=== PATIENT | female | born 1985 | race Caucasian/White ===

== ENCOUNTER → 2019-07-23 10:00 | Outpatient (CLI) | payer OTHER, SELFPAY ==
[2018-05-29 08:42] VITALS: BMI 23.1
[2019-07-23 10:51] LABS: Absolute Lymphocyte Count 1.94 X10^3/uL (0.83-4.51); Absolute Neutrophil Count 4.6 X10^3/uL (2.0-7.7); Basophil# 0.04 X10^3/uL; Basophil% 0.6 % (0-1); Eosinophil# 0.05 X10^3/uL; Eosinophils% 0.7 % (0-5); Hematocrit 39.8 % (37-47); Hemoglobin 12.6 g/dL (12.0-15.0); Lymphocyte # 1.94 X10^3/ul (4.0); Lymphocyte % 27.4 % (19-41); Mean Corp Hgb Conc 31.7 g/dL (32-36); Mean Corpuscular Hgb 28.1 pg (27.0-32.0); Mean Corpuscular Volume 88.6 fL (81-99); Mean Platelet Vol. 11.3 fl (6.2-12.0); Monocyte# 0.42 X10^3/uL; Monocyte% 5.9 % (0-10); NRBC Flagged by Analyzer 0 % (0-5); Platelet Count 277 K/mm3 (150-450); RBC Distribution Width CV 12.1 % (11.6-14.6); RBC Distribution Width SD 39.4 fl (35.1-43.9); Red Blood Count 4.49 M/mm3 (4.2-5.4); White Blood Count 7.1 K/mm3 (4.4-11.0)
[2019-07-23 10:59] LABS: Erythrocyte Sedimentation Rate 9 mm/hr (0-20)
[2019-07-23 11:17] LABS: T4 Total, Thyroxin 11.5 ug/dL (4.8-13.9); Thyroid Stim Hormone (TSH) 1.03 uIU/mL (0.358-3.74)
[2019-07-27 13:00] LABS: Immunoglobulin E 42 IU/mL (6-495)
== END ==
PROVIDERS: Family Provider Family Medicine; PCP Family Medicine; Referring Provider Otolaryngology Otolaryngology/Facial Plastic Surgery; Visit Provider Otolaryngology Otolaryngology/Facial Plastic Surgery
DX: R09.81 Nasal congestion (principal); R53.83 Other fatigue; R22.0 Localized swelling, mass and lump, head
CPT/HCPCS: 36415; 82785; 84436; 84443; 85025; 85652

== ENCOUNTER 2019-10-23 09:17 | Emergency (ER) | payer OTHER, SELFPAY ==
[2019-09-03 10:17] VITALS: BMI 25.4
[2019-10-23 09:19] VITALS: BP 118/84; PULSE 125; RESP 18; TEMP 36.6; O2SAT 99; BMI 24.2
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
[2019-10-23] MEDS: Ondansetron ODT 4 MG Tablet PO (09:49)
[2019-10-23] MEDS: Acetaminophen 325 MG Tablet 650 MG PO (09:49)
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
--- NOTE | 2019-10-23 09:53 | DCINST.ED_ITS ---
ED Disposition - Plan for ED Patient: Instructions: CONCUSSION, No Wake Up, HEAD INJURY, No Wake-Up (Adult) Prescriptions: Ondansetron [Zofran Odt] 4 mg PO Q8H PRN PRN #10 tab PRN Reason: Nausea Transmission Status: Pending to [id number] Referrals: Mumtza Billingsley MD [Primary Care Provider] - 3-5 Days
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
== END 2019-10-23 10:16 | disposition home or self-care (01) ==
LOC: ED 10:05
PROVIDERS: Emergency Provider Emergency Medicine; PCP Family Medicine
DX: S06.0X0A Concussion without loss of consciousness, initial encounter (principal); W06.XXXA Fall from bed, initial encounter; S20.229A Contusion of unspecified back wall of thorax, initial encounter; Z79.899 Other long term (current) drug therapy; F32.9 Major depressive disorder, single episode, unspecified; M79.7 Fibromyalgia
CPT/HCPCS: 70450; 99283

== ENCOUNTER → 2021-05-17 08:30 | Outpatient (CLI) | payer OTHER, SELFPAY | PROVIDERS: PCP Family Medicine; Referring Provider Physician Assistant Surgical; Visit Provider Physician Assistant Surgical | DX: J02.9 Acute pharyngitis, unspecified (principal) | CPT/HCPCS: 87635; U0005; U0003 ==

== ENCOUNTER 2021-06-10 16:05 | Emergency (ER) | payer OTHER, SELFPAY ==
[2021-06-10 16:06] VITALS: BP 142/86; PULSE 124; PULSE 125; RESP 18; TEMP 36.8; O2SAT 97; BMI 26.9
--- NOTE | 2021-06-10 17:44 | EKG12_ITS ---
Test Reason : SOB Blood Pressure : / mmHG Vent. Rate : 097 BPM Atrial Rate : 097 BPM P-R Int : 162 ms QRS Dur : 074 ms QT Int : 344 ms P-R-T Axes : 074 064 050 degrees QTc Int : 436 ms Normal sinus rhythm Normal ECG Confirmed by BRUCE SALAZAR, SRIDHAR ([id number]), film editor supervisor MATHEW MAK ([id number]) on 06/14/2021 8:42:45 AM Referred By: KRISTEL Confirmed By:SRIDHAR BARRERA MD
--- NOTE | 2021-06-10 17:48 | EDS_ITS ---
HPI History of Present Illness Chief Complaint: Other, Pain/Inj Narrative Narrative: 35-year-old female presenting with bilateral breast pain. She states that on the lateral aspect of each breast. She is currently day 10 of Covid 19 symptoms. She still has a mild cough. She complains of pain with deep inspiration in the center of her chest but also radiates to the bilateral breasts. She states that she has been on prednisone twice for her breast pain. This does seem to help the pain. However it comes back when she finishes the prednisone. She does not note any. She is noted no color changes. She has no pain in the axilla. Patient has tenderness in the lateral aspect of the bilateral breast. Patient is on control and states there is very low possibility of as both she and her significant other stated they were tested and were told that they have low probability of . Patient states that she has never had a fever. She did have body aches and chills. Patient does admit to some shortness of breath with exertion. She has not had any leg swelling or pain. [facility] Medical History Depression with anxiety Home Medications L norgest/E estradiol-E estrad 0.10 mg-20 mcg (84)/10 mcg(7) tabs,3mos 1 tab PO QDAY #91 tab 09/07/20 [Rx Last Taken Unknown] citalopram 40 mg tablet 40 mg PO DAILY #90 tab 09/07/20 [Rx Last Taken Unknown] azithromycin 250 mg tablet See Rx Instructions PO .COMPLEX #6 tab 05/17/21 [Rx Last Taken Unknown] prednisone 10 mg PO UD #33 tab 06/10/21 [Rx Last Taken Unknown] Allergy/AdvReac Type Severity Reaction Status Date / Time hydrocodone [From Vicodin] Allergy Mild nausea, Verified 05/17/21 17:10 vomiting Family History Grandmother Breast cancer Grandfather Prostate cancer Mother Depression Surgical History surgical removal of mole Iola teeth extracted Social History Smoking Status: Never smoker alcohol intake: current alcohol intake frequency: holidays/special occasions only substance use type: does not use caffeine: No what type of physical activity do you participate in: none seatbelt use: always do you feel safe at home: Yes additional 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 Respiratory/Chest Respiratory/Chest: Reports cough, dyspnea and dyspnea on exertion; Denies sputum Gastrointestinal Gastrointestinal: Denies abdominal pain, nausea or vomiting Genitourinary Genitourinary ED: Denies dysuria or hematuria Musculoskeletal Musculoskeletal: Denies arthralgias, myalgias or neck pain Integumentary Denies Abrasions or rash Neurologic Neurologic: Denies headache(s) or paresthesias EXAM Physical Exam Const Vital Signs: 06/10/21 16:06 06/10/21 18:12 06/10/21 18:13 Temperature 98.2 F Temperature Source Temporal Pulse Rate 124 H 98 Respiratory Rate 18 15 Respiratory Effort Normal Non-Labored Blood Pressure 142/86 H Blood Pressure Mean 104 Pulse Ox 97 98 Oxygen Delivery Method Room Air Room Air 06/10/21 19:35 Temperature Temperature Source Pulse Rate Respiratory Rate Respiratory Effort Blood Pressure Blood Pressure Mean Pulse Ox 97 Oxygen Delivery Method Positive well developed General Appearance ED: well developed and NAD; Negative for pallor HEENT normocephalic and atraumatic Eyes PERRL and EOMs intact bilaterally Chest Wall palpation of chest normal Breast/Axilla Inspection: abnormal inspection of the breast and other Other Details: Tenderness at the lateral aspect of each breast without crepitance, bruising, erythema. ; Negative for abnormal inspection of the axilla Nipple/Areola: No nipple discharge Resp normal respiratory effort Effort and Inspection: respiratory distress Cardio regular rhythm Rate: tachycardic GI normal to inspection, nondistended, normoactive bowel sounds Extremity normal to inspection General Extremety ED: Negative for edema or tenderness General Extremity: Negative for edema Neuro oriented x3, CN's II-XII intact bilaterally and no sensory deficits noted Sensorium / Orientation: awake and alert Motor Exam: strength 5/5 throughout and strength abnormal Psych mental status grossly normal Skin General Skin Exam: Negative for jaundice or pallor Heart Score History: Slightly/Non-Suspicious ECG: Normal Age: </= 45 years Risk Factors: No Risk Factors Troponin: </= Normal Limit Score: 0 MDM MDM MDM Narrative Medical decision making narrative: Patient presenting with bilateral breast pain which is on the lateral aspect of bilateral breasts. She has had Covid and is nearly out of quarantine. She also complains of pain with deep inspiration. She is been on prednisone twice for this. From a cardiac standpoint she has no risk factors for ACS. EKG shows a normal sinus rhythm with a ventricular rate of 97 bpm without sign of ischemic changes. Patient has COVID-19 actively and is in the inflammatory phase he is also on oral control and given her chest pain I did obtain a CTA of the chest which shows no acute PE or dissection but does show an 11 mm nonspecific nodule which could also be a focal point of pneumonitis. Patient's troponin is negative. Her lab work shows a slight leukocytosis at 12.8 however she has been on steroids. Her renal function electrolytes are normal. LFTs are normal. Serum is negative. Patient was given morphine and Zofran and states that her pain is not well controlled. The pain has been here for most of the time she is had COVID-19. She reports that steroids do help so I will give her another steroid taper. This should cover her until she is out of quarantine. Given the patient's breast pain I recommended that she get a mammogram on an outpatient basis when she is out of quarantine and although I did find some breast tenderness I did not feel any masses. She has no obvious skin changes. She does not report any drainage. She has no axillary lymph nodes. Patient acknowledged understanding of instructions. She can return precautions. Impression: 1. Breast pain 2. Atypical chest pain. 3. History of COVID-19 4. Pulmonary nodule Lab Data Labs: Laboratory Results - last 24 hr 06/10/21 06/10/21 06/10/21 18:02 18:02 18:02 WBC 12.8 H RBC 4.45 Hgb 12.2 Hct 37.6 MCV 84.5 MCH 27.4 MCHC 32.4 RDW Std Deviation 36.9 RDW Coeff of Marlene 12.1 Plt Count 374 MPV 10.1 Immature Gran % (Auto) 0.700 Neut % (Auto) 73.2 H Lymph % (Auto) 19.3 Bent % (Auto) 6.3 Eos % (Auto) 0.2 Baso % (Auto) 0.3 Absolute Neuts (auto) 9.4 H Absolute Lymphs (auto) 2.46 Nucleated RBC % 0 Sodium 138 Potassium 4.1 Chloride 104 Carbon Dioxide 29.0 Anion Gap 5 BUN 15 Creatinine 0.66 Estim Creat Clear Calc 111.37 Est GFR (MDRD) Af Amer 130 Est GFR (MDRD) Non-Af 107 BUN/Creatinine Ratio 22.7 H Glucose 95 Calcium 9.0 Total Bilirubin 0.30 AST 24 ALT 37 Alkaline Phosphatase 61 Troponin I High Sens 8 Total Protein 7.7 Albumin 3.4 Globulin 4.3 H Albumin/Globulin Ratio 0.8 L Serum , Qual NEGATIVE Radiography Diagnostic Testing: Clinical Impression(s) from Imaging Studies Chest CTA 06/10/21 18:30 IMPRESSION: 1. No pulmonary embolism 2. Solitary 11 mm nodule, nonspecific, possibly focal pneumonitis. Consider viral logic testing for Covid. Otherwise follow-up in 6 months is advised. Electronically Signed: Corie Mendez MD at 18:58 EDT Tel , Service support , Discharge Plan Triage Chief Complaint: Other, Pain/Inj ED Provider: Nikunj Weber Dx/Rx/DC Orders Instructions: Coronavirus Disease 2019 (COVID-19): Caring for Yourself or Others, ED Pulmonary Nodule, Solitary Prescriptions: New prednisone 10 mg tablet 10 mg PO UD Qty: 33 RF: 0 No Action citalopram 40 mg tablet 40 mg PO DAILY Qty: 90 RF: 4 L norgest/e.estradiol-e.estrad [LoSeasonique] 0.10 mg-20 mcg (84)/10 mcg (7) tablets,dose pack,3 month 1 tab PO QDAY Qty: 91 RF: 4 azithromycin 250 mg tablet See Rx Instructions PO .COMPLEX Qty: 6 RF: 0 Primary Care Provider: Mumtaz Billingsley Referrals: Mumtaz Billingsley MD [Primary Care Provider] - Activity Restrictions/Additional Instructions: You were seen today for atypical chest pain and breast pain. I did not appreciate any masses but did appreciate tenderness. The CT of your chest was negative for blood clots however you did have a single pulmonary nodule versus focal area of inflammation (pneumonitis). You will need follow-up with your primary care physician to ensure resolution of the pulmonary nodule/pneumonitis. I recommend you also get scheduled for mammogram due to the pain in your breasts. Disposition Disposition: Home, Self Care Discharge Date/Time: 06/10/21 19:36
[2021-06-10 18:12] VITALS: PULSE 98; RESP 15; O2SAT 98
[2021-06-10 18:13] LABS: Absolute Lymphocyte Count 2.46 X10^3/uL (0.83-4.51); Absolute Neutrophil Count 9.4 X10^3/uL (2.0-7.7); Basophil# 0.04 X10^3/uL; Basophil% 0.3 % (0-1); Eosinophil# 0.03 X10^3/uL; Eosinophils% 0.2 % (0-5); Hematocrit 37.6 % (37-47); Hemoglobin 12.2 g/dL (12.0-15.0); Lymphocyte # 2.46 X10^3/ul (0.83-4.51); Lymphocyte % 19.3 % (19-41); Mean Corp Hgb Conc 32.4 g/dL (32-36); Mean Corpuscular Hgb 27.4 pg (27.0-32.0); Mean Corpuscular Volume 84.5 fL (81-99); Mean Platelet Vol. 10.1 fl (6.2-12.0); Monocyte% 6.3 % (0-10); NRBC Flagged by Analyzer 0 % (0-5); Neutrophil # 9.35 X10^3/uL (2.7-7.7); Neutrophil % 73.2 % (47-70); Platelet Count 374 K/mm3 (150-450); RBC Distribution Width CV 12.1 % (11.6-14.6); RBC Distribution Width SD 36.9 fl (35.1-43.9); Red Blood Count 4.45 M/mm3 (4.2-5.4); White Blood Count 12.8 K/mm3 (4.4-11.0)
[2021-06-10 18:15] LABS: Internal QC Validated? YES +Cl - CLEAR BKGD; Pregnancy, Serum, hCG Quali. NEGATIVE Negative
[2021-06-10] MEDS: Morphine 4 MG/ML Syringe IV (18:15)
[2021-06-10] MEDS: Ondansetron 4 MG/2 ML Vial IV (18:15)
[2021-06-10 18:27] LABS: ALB/GLOB Ratio 0.8 RATIO (0.9-2.4); AST(SGOT) 24 U/L (15-37); Alanine Aminotransfer ALT/SGPT 37 U/L (13-56); Albumin, Serum 3.4 g/dL (3.2-5.0); Alkaline Phosphatase 61 U/L (45-117); Anion Gap 5 (5-15); BUN 15 mg/dL (7-18); BUN/Creat Ratio 22.7 RATIO (10-20); Chloride 104 mmol/L (98-107); Creatinine, Serum 0.66 mg/dL (0.55-1.02); EST Glomerular Filtration Rate 107 mL/min (>60); Est Glom Filt Rate - Afr Amer 130 mL/min (>60); Estimated Creatinine Clearance 111.37 ml/min; Globulin 4.3 g/dL (2.2-4.2); Glucose 95 mg/dL (74-106); Potassium 4.1 mmol/L (3.5-5.1); Protein, Total 7.7 g/dL (6.4-8.2); Sodium Level 138 mmol/L (136-145); Troponin-I HS 8 pg/mL (3.0-54.0)
--- NOTE | 2021-06-10 18:30 | CT_ITS ---
STUDY: CTA CHEST REASON FOR EXAM: Female, 35 years old. Chest pain RADIATION DOSAGE (If Supplied By Facility): CTDIvol = ( 9.47 ) mGy, DLP = ( 319.60 ) mGycm TECHNIQUE: The examination was performed with the intravenous administration of IV 100mL Isovue-370. Post-processing of the angiographic images was performed, with multiplanar reformation and 3D reconstruction. Individualized dose optimization techniques were used for this CT. COMPARISON: None. FINDINGS: There is no acute or chronic pulmonary embolism. Aorta is of normal caliber. There is a solitary consolidative 11 mm nodule in the left lower lobe superior segment. There is minor right middle lobe atelectasis. There is no pneumothorax, pulmonary edema or pleural effusions. Mediastinal contents are normal. Osseous structures are intact. Abdominal structures are unremarkable. CT/CTA Chest W/WO Contrast IMPRESSION: 1. No pulmonary embolism 2. Solitary 11 mm nodule, nonspecific, possibly focal pneumonitis. Consider viral logic testing for Covid. Otherwise follow-up in 6 months is advised. Electronically Signed: Corie Mendez MD at 18:58 EDT Tel , Service support ,
[2021-06-10 19:35] VITALS: O2SAT 97
== END 2021-06-10 19:36 | disposition home or self-care (01) ==
PROVIDERS: Emergency Provider Student in an Organized Health Care Education/Training Program; PCP Family Medicine
DX: N64.4 Mastodynia (principal); U07.1 COVID-19; R91.1 Solitary pulmonary nodule
CPT/HCPCS: 71275; 80053; 84484; 84703; 85025; 93005; 96374; 96375; 99284; Q9967; A4216; J2405

== ENCOUNTER → 2021-06-20 08:53 | Outpatient (CLI) | payer OTHER, SELFPAY ==
--- NOTE | 2021-06-20 08:58 | BI_ITS ---
MAMMOGRAPHY - BILATERAL DIAGNOSTIC REASON FOR EXAM: Female, 35 years old. Occasional bilateral breast pain worse on the lateral aspect of the right breast. PERTINENT HISTORY: Grandmother with breast cancer. TECHNIQUE: Digital bilateral breast christian (3D mammographic acquisition) in the CC and MLO projections. 2-D mediolateral oblique (MLO) and craniocaudad (CC) views of both breasts were obtained. CAD: Full Field Digital Mammography with Computer Added Detection was performed. COMPARISON: None. Baseline examination. FINDINGS: Breast Composition: The breasts are extremely dense, which lowers the sensitivity of mammography. There are no dominant masses or suspicious calcifications. No other significant abnormalities are identified. BI/DIAG MAMM W/CAD, BILAT IMPRESSION: Negative diagnostic mammogram. With the patient''s history of the breast pain, targeted ultrasound follow-up is recommended. ASSESSMENT CATEGORY: BIRADS Category 0: Incomplete. Need additional imaging evaluation. A letter regarding these results will be sent to the patient by the facility within 30 days. Approximately 10% of breast cancers are not detected by mammography. A normal mammogram should not delay biopsy of a clinically suspicious abnormality. Electronically Signed: Hernandez Larson MD at 10:33 EDT , Service support ,
--- NOTE | 2021-06-20 08:58 | US_ITS ---
STUDY: ULTRASOUND BREAST - RIGHT (accession [id number]), LEFT (accession [id number]) REASON FOR EXAM: Female, 35 years old. Pain in the right breast. TECHNIQUE: Axial and longitudinal images of the RIGHT (accession [id number]), LEFT (accession [id number]) breast were performed with a high resolution ultrasound transducer. # OF IMAGES: 64 COMPARISON: Comparison is made with prior mammogram done earlier in the day. FINDINGS: LeftBreast: The lateral aspect of the left breast was examined by ultrasound. There is a 9 mm x 6 mm x 4 mm cyst at the 2 o''clock position of the breast at 3 cm from nipple. IMPRESSION: 9 mm x 6 mm x 4 mm cyst is seen at the 2 o''clock position of the left breast at 3 cm from the nipple. ASSESSMENT CATEGORY: BIRADS Category 2: Benign. A letter regarding these results will be sent to the patient by the facility within 30 days. Electronically Signed: Hernandez Larson MD at 10:35 EDT , Service support , STUDY: ULTRASOUND BREAST - RIGHT (accession [id number]), LEFT (accession [id number]) REASON FOR EXAM: Female, 35 years old. Pain in the right breast. TECHNIQUE: Axial and longitudinal images of the RIGHT (accession [id number]), LEFT (accession [id number]) breast were performed with a high resolution ultrasound transducer. # OF IMAGES: 64 COMPARISON: Comparison is made with prior mammogram done earlier in the day. FINDINGS: LeftBreast: The lateral aspect of the left breast was examined by ultrasound. There is a 9 mm x 6 mm x 4 mm cyst at the 2 o''clock position of the breast at 3 cm from nipple. US/Breast Limited Unilateral
== END ==
PROVIDERS: PCP Family Medicine; Referring Provider Nurse Practitioner Women's Health; Visit Provider Nurse Practitioner Women's Health
DX: N64.4 Mastodynia (principal)
CPT/HCPCS: 76642; 77062; 77066; G0279

== ENCOUNTER 2021-09-15 16:03 | Outpatient (CLI) | payer OTHER, SELFPAY ==
[2021-09-20 13:34] LABS: HPV APTIMA, High Risk Negative (Negative)
== END 2021-09-15 23:59 | disposition short-term general hospital (02) ==
LOC: LABSPEC 16:04
PROVIDERS: PCP Family Medicine; Visit Provider Obstetrics & Gynecology
DX: Z12.4 Encounter for screening for malignant neoplasm of cervix (principal)
CPT/HCPCS: 87624; 88175; G0145

== ENCOUNTER → 2024-10-15 | Outpatient (CLI) | payer OTHER, SELFPAY ==
[2024-10-15 12:23] LABS: Absolute Lymphocyte Count 2.02 X10^3/uL (0.83-4.51); Absolute Neutrophil Count 4.3 X10^3/uL (2.0-7.7); Basophil# 0.03 X10^3/uL; Basophil% 0.4 % (0-1); Eosinophil# 0.06 X10^3/uL; Eosinophils% 0.9 % (0-5); Hematocrit 36.8 % (37-47); Hemoglobin 11.5 g/dL (12.0-15.0); Lymphocyte # 2.02 X10^3/ul (0.83-4.51); Mean Corp Hgb Conc 31.3 g/dL (32-36); Mean Corpuscular Hgb 26.9 pg (27.0-32.0); Mean Platelet Vol. 11.2 fl (6.2-12.0); Monocyte# 0.36 X10^3/uL; Monocyte% 5.3 % (0-10); NRBC Flagged by Analyzer 0 % (0-5); Neutrophil # 4.25 X10^3/uL (2.7-7.7); Neutrophil % 63.1 % (47-70); Platelet Count 331 K/mm3 (150-450); RBC Distribution Width CV 12.8 % (11.6-14.6); RBC Distribution Width SD 39.8 fl (35.1-43.9); Red Blood Count 4.28 M/mm3 (4.2-5.4); White Blood Count 6.7 K/mm3 (4.4-11.0)
[2024-10-15 12:52] LABS: ALB/GLOB Ratio 0.8 RATIO (0.9-2.4); AST(SGOT) 24 U/L (15-37); Alanine Aminotransfer ALT/SGPT 21 U/L (13-56); Albumin, Serum 3.4 g/dL (3.2-5.0); Alkaline Phosphatase 67 U/L (45-117); Anion Gap 7 (5-15); BUN 9 mg/dL (7-18); BUN/Creat Ratio 15.2 RATIO (10-20); Chloride 104 mmol/L (98-107); Cholesterol 150 mg/dL (200); Creatinine, Serum 0.59 mg/dL (0.55-1.02); EST Glomerular Filtration Rate 120 mL/min (>60); Est Glom Filt Rate - Afr Amer 145 mL/min (>60); Globulin 4.1 g/dL (2.2-4.2); Glucose 91 mg/dL (74-106); High Density Lipoprotein 62 mg/dL; Potassium 3.6 mmol/L (3.5-5.1); Protein, Total 7.5 g/dL (6.4-8.2); Sodium Level 138 mmol/L (136-145); Triglycerides 107 mg/dL; Very Low Density Lipoprotein 21 mg/dL (5-40)
[2024-10-15 13:59] LABS: Hemoglobin A1c 5.7 % (3.8-5.6)
[2024-10-17 13:08] LABS: Vitamin D 1,25-Dihydroxy 53.4 pg/mL (24.8-81.5)
== END | disposition home or self-care (01) ==
LOC: MTLAB 10:51
PROVIDERS: PCP Family Medicine; Referring Provider Obstetrics & Gynecology; Visit Provider Obstetrics & Gynecology
DX: R53.83 Other fatigue (principal); Z13.21 Encounter for screening for nutritional disorder; Z13.220 Encounter for screening for lipoid disorders; Z13.1 Encounter for screening for diabetes mellitus; Z13.29 Encounter for screening for other suspected endocrine disorder
CPT/HCPCS: 36415; 80053; 80061; 82652; 83036; 84443; 85025